=== PATIENT | female | born 1970 | race Two or more races ===

== ENCOUNTER 2022-07-28 23:07 | Emergency (ER) | payer OTHER ==
[~2022-07-28] VITALS: Ht 152.4 cm; Wt 81.2 kg
[2022-07-28 23:15] VITALS: BP 130/79
--- NOTE | 2022-07-29 03:15 | NUR ---
PATIENT ELOPED FROM FACILITY. DISCHARGE INSTRUCTIONS NOT GIVEN TO PATIENT. DR. MARQUES NOTIFIED.PATIENT DOESNT WANT TO WAIT
--- NOTE | 2022-07-29 04:18 | NUR ---
PT NOT FOUND IN LOBBY OR OUTSIDE. CALLED PT ON PERSONAL PHONE AND SHE STATED "I LEFT. I'M JUST GOING TO FOLLOW UP WITH MY DOCTOR." PT ELOPED AT THIS TIME. DR. MARQUES MADE AWARE.
== END 2022-07-29 03:15 | disposition left against medical advice (07) ==
LOC: MED 23:07
DX: T16.1XXA Foreign body in right ear, initial encounter (principal); X58.XXXA Exposure to other specified factors, initial encounter; Y93.89 Activity, other specified; Y92.89 Other specified places as the place of occurrence of the external cause; Y99.8 Other external cause status
CPT/HCPCS: 69200; 99284

== ENCOUNTER 2023-02-05 06:05 | Emergency (ER) | payer OTHER ==
[~2023-02-05] VITALS: Ht 152.4 cm; Wt 86.2 kg
[2023-02-05 06:05] VITALS: BP 123/70
--- NOTE | 2023-02-05 06:05 | NUR ---
TO BED AMBULATORY
--- NOTE | 2023-02-05 06:20 | NUR ---
Patient resting in bed, A/Ox4, chest rise and fall symmetrical, no s/s of distress, on monitor.
--- NOTE | 2023-02-05 06:25 | NUR ---
ER Physician assessing patient.
[2023-02-05] MEDS ORDERED: LORA-476 PO (06:27)
[2023-02-05] MEDS ORDERED: OMEP20EC11 PO (06:27)
[2023-02-05] MEDS ORDERED: IBUP-2213 PO (06:32)
[2023-02-05] MEDS ORDERED: OMEP40EC24 PO (06:32)
[2023-02-05 06:38] VITALS: BP 115/62
== END 2023-02-05 06:38 | disposition home or self-care (01) ==
LOC: MED 06:05
DX: R07.9 Chest pain, unspecified (principal); Z79.899 Other long term (current) drug therapy
CPT/HCPCS: 93005; 99283

== ENCOUNTER 2023-06-19 04:52 | Emergency (ER) | payer OTHER ==
[~2023-06-19] VITALS: Ht 152.4 cm; Wt 81.2 kg
[~2023-06-19 04:52] MED LIST: IBUP-2213 PO; LORA-476 PO; OMEP20EC11 PO; OMEP40EC24 PO
[2023-06-19 05:00] VITALS: BP 127/60; PULSE 90; RESP 17; TEMP 97.8; O2SAT 96
[2023-06-19] MEDS ORDERED: HYD1C TP (05:22)
[2023-06-19] MEDS ORDERED: HYDR25CA1 PO (05:22)
[2023-06-19 05:29] VITALS: BP 127/60; PULSE 90; RESP 17; TEMP 97.8; O2SAT 96
== END 2023-06-19 05:29 | disposition home or self-care (01) ==
LOC: MED 04:52
DX: L29.9 Pruritus, unspecified (principal); Z79.899 Other long term (current) drug therapy
CPT/HCPCS: 99283